=== PATIENT | female | born 1970 | race Caucasian/White ===

== ENCOUNTER → 2016-09-15 | Outpatient (CLI) | payer OTHER ==
--- NOTE | ~2016-09-15 | ST ---
Unit #: [id number] #: [id number] Patient: ELLIE CONTRERAS [id number] [address] [address] [id number] O MR#: [id number] NAME: ELLIE CONTRERAS : 1970 SEX: F STUDY DATE/TIME: 09/16/2016 UNIT: [facility] ROOM: STUDY DESCRIPTION: Attending Physician: Jeannie Leblanc M.D. Referring Physician: Jeannie Leblanc M.D. Primary Care Physician: Jeannie Leblanc M.D. CARDIOLOGY REPORT EXAM Stress ECG. INDICATIONS Hypertension, family history of coronary disease, no diabetes. SUMMARY The patient exercised on a Trae protocol to maximal effort. Patient completed 10 minutes 31 seconds of exercise. Heart rate increased from 94 to 160 (91%) and blood pressure increased from 120/86 to 178/90. With stress, there was shortness of breath, typical for exercise. There were single PVCs, but there were no ST changes either at rest or stress. IMPRESSION 1. Good exercise capacity. 2. Normal heart rate and upper normal blood pressure responses. 3. Normal stress ECG. 4. Overall normal study. Dictated by... Melany Hunter/sallie TD: 09/17/2016 09:02 JOB #: [id number] CARDIOLOGY REPORT Page 1 of 1 X Salvatore Huff MD CARDIOLOGY REPORT
== END | disposition home or self-care (01) ==
LOC: CEKG 07:41
DX: I25.10 Atherosclerotic heart disease of native coronary artery without angina pectoris (principal)
CPT/HCPCS: 93017